=== PATIENT | female | born 1940 | race Two or more races ===

== ENCOUNTER 2021-01-31 11:42 | Emergency (ER) | payer MEDICARE, OTHER ==
[~2021-01-31] VITALS: Ht 160 cm; Wt 79.4 kg
--- NOTE | 2021-01-31 12:01 | NUR ---
CHEST WALL AND R UPPER BACK PAIN X 3 DAYS. THE PATIENT RATES CHEST WALL AND RIGHT UPPER BACK PAIN 5/10. IN ROOM AIR AND DENIES SOB. RESPIRATION REGULAR AND UNLABORED. ATTACHED TO THE MONITOR.
[2021-01-31] MEDS ORDERED: ACETAMINOPHEN ES 500 MG TABLET ONE (12:12)
[2021-01-31] MEDS ORDERED: CYCLOBENZAPRINE 10 MG TABLET ONE (12:12)
--- NOTE | 2021-01-31 12:15 | NUR ---
MEDICATED THE PATIENT PER ORDER. WILL CONTINUE TO MONITOR THE PATIENT.
[2021-01-31 12:26] LABS: BASOPHILS # (AUTO) 0.1 K/uL (0.0-0.2); BASOPHILS % (AUTO) 1.1 % (0.0-2.0); EOSINOPHILS % (AUTO) 0.4 % (0.0-6.0); HEMATOCRIT 37 % (33-45); HEMOGLOBIN 12.3 g/dL (11.5-14.8); LYMPHOCYTES # (AUTO) 0.8 K/uL (0.8-4.8); LYMPHOCYTES % (AUTO) 13.4 % (20.0-44.0); MEAN CORPUSCULAR HGB CONC 33 g/dl (31.0-36.0); MEAN CORPUSCULAR VOLUME 91 fL (82-100); MONOCYTES # (AUTO) 0.5 K/uL (0.1-1.30); NEUTROPHILS # (AUTO) 4.9 K/uL (1.8-8.9); NEUTROPHILS % (AUTO) 77.1 % (43.0-81.0); PLATELET COUNT (AUTO) 260 K/uL (150-450); RED BLOOD CELL COUNT(AUTO) 4.03 MIL/uL (4.0-5.2); WHITE BLOOD COUNT (AUTO) 6.3 K/uL (4.3-11.0)
[2021-01-31] MEDS ORDERED: ACETAMINOPHEN ES 500 MG TABLET PO ONE (12:30)
[2021-01-31] MEDS ORDERED: CYCLOBENZAPRINE 10 MG TABLET PO ONE (12:30)
[2021-01-31 12:35] LABS: CALCIUM, SERUM 9.5 mg/dL (8.5-10.1); CARBON DIOXIDE 23 mmol/L (21-32); CHLORIDE 101 mmol/L (98-107); CREATININE 1.3 mg/dL (0.6-1.3); GLUCOSE 148 mg/dL (74-106); POTASSIUM 4.2 mmol/L (3.5-5.1); SODIUM SERUM 138 mmol/L (136-145); UREA NITROGEN, BLOOD 19 mg/dL (7-18)
[2021-01-31] MEDS ORDERED: CEPH500C2 PO (13:05)
[2021-01-31] MEDS ORDERED: CYCL5TAB PO (13:28)
[2021-01-31] MEDS ORDERED: ACET-2605 PO (13:28)
[2021-01-31 13:44] VITALS: BP 131/85
--- NOTE | 2021-01-31 13:44 | NUR ---
Patient discharged to home in stable condition. Written and verbal after care instructions given. Patient verbalizes understanding of instruction.
== END 2021-01-31 13:45 | disposition home or self-care (01) ==
LOC: ER 11:50
DX: R07.89 Other chest pain (principal); M62.838 Other muscle spasm; I10 Essential (primary) hypertension; Z98.890 Other specified postprocedural states; Z79.899 Other long term (current) drug therapy
CPT/HCPCS: 36415; 71045-TC; 80048-TC; 84484-TC; 85025-TC

== ENCOUNTER 2022-01-17 14:58 | Inpatient (IN) | payer MEDICARE, OTHER ==
[~2022-01-17] VITALS: Ht 160 cm; Wt 85.3 kg
[~2022-01-17 14:58] MED LIST: ACET-2605 PO; CYCL5TAB PO
--- NOTE | 2022-01-17 15:20 | NUR ---
BIBRA 38 FROM HOME W/ C/O PRESSURE-LIKE CHEST PAIN THAT STARTED NOON TIME TODAY. ASPIRIN 324 AND NITRO X1 GIVEN SENIOR COMMUNICATIONS SPECIALIST W/ RELIEF. PT A/O X4, VERBALLY RESPONSIVE. TO ER BED 8. PT ATTACHED TO MONITOR.
--- NOTE | 2022-01-17 15:35 | NUR ---
DR TRAORE AT BEDSIDE FOR EVAL
--- NOTE | 2022-01-17 15:40 | NUR ---
TECH AT BEDSIDE FOR EKG
--- NOTE | 2022-01-17 15:43 | NUR ---
PHLEB TECH AT BEDSIDE FOR BLOOD DRAW.
[2022-01-17 16:01] LABS: BASOPHILS % (AUTO) 0.7 % (0.0-2.0); HEMATOCRIT 33 % (33-45); HEMOGLOBIN 10.9 g/dL (11.5-14.8); LYMPHOCYTES # (AUTO) 0.7 K/uL (0.8-4.8); LYMPHOCYTES % (AUTO) 14.1 % (20.0-44.0); MEAN CORPUSCULAR HGB CONC 34 g/dl (31.0-36.0); MEAN CORPUSCULAR VOLUME 90 fL (82-100); MONOCYTES # (AUTO) 0.4 K/uL (0.1-1.30); MONOCYTES % (AUTO) 7.8 % (2.0-12.0); NEUTROPHILS # (AUTO) 4.1 K/uL (1.8-8.9); NEUTROPHILS % (AUTO) 76.4 % (43.0-81.0); PLATELET COUNT (AUTO) 219 K/uL (150-450); RED BLOOD CELL COUNT(AUTO) 3.61 MIL/uL (4.0-5.2); WHITE BLOOD COUNT (AUTO) 5.3 K/uL (4.3-11.0)
[2022-01-17 16:20] LABS: CALCIUM, SERUM 8.8 mg/dL (8.5-10.1); CARBON DIOXIDE 23 mmol/L (21-32); CHLORIDE 99 mmol/L (98-107); CREATININE 1.4 mg/dL (0.6-1.3); GLUCOSE 120 mg/dL (74-106); POTASSIUM 4.6 mmol/L (3.5-5.1); SODIUM SERUM 132 mmol/L (136-145); UREA NITROGEN, BLOOD 31 mg/dL (7-18)
--- NOTE | 2022-01-17 18:10 | NUR ---
COVID SWAB COLLECTED AND SENT TO LAB
--- NOTE | 2022-01-17 18:27 | NUR ---
[facility] PAGED
[2022-01-17 20:00] VITALS: BP 145/63
[2022-01-17] MEDS ORDERED: NITROGLYCERIN 0.4 MG/TAB BOTTLE SL PRN (20:00)
[2022-01-17] MEDS ORDERED: MAGNESIUM HYDROXIDE 30 ML UDC PO PRN (20:00)
[2022-01-17] MEDS ORDERED: HYDROCODONE/APAP 5/325MG TABLET PO PRN (20:00)
[2022-01-17] MEDS ORDERED: Z GUARD REMEDY 4 OZ OINT TP PRN (20:00)
[2022-01-17] MEDS ORDERED: DEXTROSE 50%-WATER 50 ML DISP.SYRIN IV PRN (20:00)
[2022-01-17] MEDS ORDERED: TEMAZEPAM 15 MG CAPSULE PO PRN (20:00)
[2022-01-17] MEDS ORDERED: MORPHINE SULFATE INJ 2 MG/ML DISP.SYRIN IV PRN (20:00)
[2022-01-17] MEDS ORDERED: MAG HYDROX/AL HYDROX/SIMETH 30 ML UDC PO PRN (20:00)
[2022-01-17] MEDS ORDERED: ONDANSETRON HCL/PF 4 MG/2 ML VIAL IVP PRN (20:00)
[2022-01-17] MEDS ORDERED: ACETAMINOPHEN 325 MG TABLET PO PRN (20:00)
--- NOTE | 2022-01-17 21:44 | NUR ---
report given to eliseo crow for sil
--- NOTE | 2022-01-17 22:07 | NUR ---
pt transported to unit on [facility]
--- NOTE | 2022-01-17 22:10 | NUR ---
RN ADMITTING NOTE PATIENT IN ADMITTED TO TELEMETRY FOR CHEST PAIN. PER PATIENT SHE FELT TIGHTNESS ON HER CHEST TODAY SO SHE CAME TO THE ER. PATIENT IS CURRENTLY ON RA, TOLERATING WELL. NO SOB NOTED AT THIS TIME. PATIENT DOES NOT REPORT ANY CHEST PAIN. TELE MONITOR READS SR 78 BPM. LAC 20 G PATENT AND INTACT, SALINE LOCKED ONLY. BELONGINGS INVENTORIED. ORIENTED PATIENT TO ROOM, RN, AND CRYSTAL CALIBRATOR. PATIENT DOES NOT HAVE ANY COVID VACCINATIONS. SAFETY MEASURES IN PLACE: BED LOCKED AND IN LOWEST POSITION, CALL LIGHT WITHIN REACH, SIDE RAILS UP. WILL MONITOR PATIENT CLOSELY.
[2022-01-17] MEDS: ENOXAPARIN SODIUM 30 MG/0.3 ML DISP.SYRIN SQ SCH (22:29)
[2022-01-17] MEDS: BLOOD SUGAR DIAGNOSTIC 1 EACH STRIP IN SCH (22:30)
--- NOTE | 2022-01-17 22:30 | NUR ---
RN NOTE PATIENT'S BS 109 MG/DL, NO INSULIN COVERAGE GIVEN. PATIENT PROVIDED JELLO AND JUICE. WILL ASSESS FOR HYPO/HYPERGLYCEMIA.
[2022-01-18] VITALS: BP_SYST 126; BP_SYST 145; BP_DIAS 63; BP_DIAS 73
[2022-01-18] MEDS ORDERED: METF-440 PO (01:14)
[2022-01-18] MEDS ORDERED: OMEP20CA15 PO (01:14)
[2022-01-18] MEDS ORDERED: METO-357 PO (01:14)
[2022-01-18] MEDS ORDERED: LOSA1TAB42 PO (01:14)
[2022-01-18] MEDS ORDERED: EXEM25TA5 PO (01:14)
[2022-01-18] MEDS ORDERED: ATOR20TA PO (01:14)
[2022-01-18 04:00] VITALS: BP 156/78
--- NOTE | 2022-01-18 06:31 | NUR ---
RN NOTE PATIENT'S BS 101 MG/DL, NO INSULIN COVERAGE GIVEN. OFFERED SNACKS BUT REFUSED AT THIS TIME. WILL ASSESS FOR HYPO/HYPERGLYCEMIA.
[2022-01-18] MEDS: BLOOD SUGAR DIAGNOSTIC 1 EACH STRIP IN SCH ×4 (06:34→21:23)
[2022-01-18 06:35] LABS: BASOPHILS % (AUTO) 0.8 % (0.0-2.0); HEMATOCRIT 32 % (33-45); HEMOGLOBIN 11.1 g/dL (11.5-14.8); LYMPHOCYTES # (AUTO) 1.1 K/uL (0.8-4.8); LYMPHOCYTES % (AUTO) 20.4 % (20.0-44.0); MEAN CORPUSCULAR HGB CONC 34 g/dl (31.0-36.0); MEAN CORPUSCULAR VOLUME 90 fL (82-100); MONOCYTES # (AUTO) 0.5 K/uL (0.1-1.30); NEUTROPHILS # (AUTO) 3.6 K/uL (1.8-8.9); NEUTROPHILS % (AUTO) 67.8 % (43.0-81.0); PLATELET COUNT (AUTO) 222 K/uL (150-450); WHITE BLOOD COUNT (AUTO) 5.3 K/uL (4.3-11.0)
[2022-01-18 06:58] LABS: CREATININE 1.2 mg/dL (0.6-1.3); MAGNESIUM 1.5 mg/dL (1.8-2.4); PHOSPHORUS 3.6 mg/dL (2.5-4.9); POTASSIUM 4.1 mmol/L (3.5-5.1)
--- NOTE | 2022-01-18 07:15 | NUR ---
RN OPENING NOTE PATIENT IS AWAKE IN BED. A/O X4. NO SOB OF RESPIRATORY DISTRESS NOTED. TELE MONITOR IS READING NORMAL SINUS BETWEEN 65-70. PATIENT DOESN'T REPORT ANY CHEST PAIN AT THIS TIME. ON RA O2 SAT AT 99%. PATIENT HAS A IV IN THE LEFT AC 20G, INTACT, PATENT, AND FLUSHING WELL. RESTING COMFORTABLY IN BED. ALL NEEDS MET AT THIS TIME. SAFETY CHECKS: BED LOCKED, LOWEST POSITION, CALL LIGHT WITHIN REACH. WILL CONTINUE TO MONITOR.
[2022-01-18 07:16] LABS: THYROID STIMULATING HORMONE 2.06 uIU/mL (0.358-3.74)
--- NOTE | 2022-01-18 07:26 | NUR ---
RN CLOSING NOTE PATIENT IN BED, AWAKE. PATIENT IS ABLE TO MAKE NEEDS KNOWN. TELE MONITOR READS SR 60S-70S. PATIENT DOES NOT REPORT ANY CHEST PAIN. PATIENT IS ON RA, TOLERATING WELL, NO SOB NOTED. PATIENT HAS A LFA IV ACCESS PATENT AND INTACT, SALINE LOCKED. PATIENT NOT IN ANY APPARENT DISTRESS. SAFETY MEASURES IMPLEMENTED. ALL NEEDS MET AND ATTENDED. ALL ORDERS CARRIED OUT. WILL ENDORSE TO DAY SHIFT NURSE FOR CLARK.
[2022-01-18] MEDS: PANTOPRAZOLE 40 MG TABLET.DR PO SCH (07:47)
[2022-01-18 08:00] VITALS: BP 144/65
[2022-01-18] MEDS ORDERED: ATORVASTATIN CALCIUM PO SCH (08:00)
[2022-01-18] MEDS ORDERED: OMEPRAZOLE 20 MG CAPSULE.DR PO SCH (08:00)
[2022-01-18 08:07] LABS: IRON, SERUM 70 ug/dl (50-175); TOTAL IRON BINDING CAPACITY 261 ug/dl (250-450)
[2022-01-18] MEDS: IV NS 0.9% 1,000 ML IV PRN (08:28)
[2022-01-18 08:46] LABS: CHOLESTEROL 147 mg/dL (<200); FERRITIN 185 ng/mL (8-388); HDL CHOLESTEROL 50 mg/dL (40-60); LDL 82 mg/dL (0-99); TRIGLYCERIDES 92 mg/dL (30-150)
[2022-01-18] MEDS ORDERED: EXEMESTANE 25 MG PO SCH (09:00)
[2022-01-18] MEDS ORDERED: ASPIRIN 81 MG TAB.CHEW PO SCH (09:00)
[2022-01-18] MEDS ORDERED: NITROGLYCERIN 0.4 MG/TAB BOTTLE ONE (09:20)
[2022-01-18] MEDS ORDERED: IOHEXOL-350 100 ML VIAL IV ONE (09:20)
[2022-01-18] MEDS ORDERED: METOPROLOL TARTRATE INJ 5 MG/5 ML AMPUL ONE ×4 (09:21→10:09)
[2022-01-18] MEDS ORDERED: CT SWABBABLE VALVE TRANS SET 1 EA INFUS.SET MC ONE (09:21)
[2022-01-18] MEDS ORDERED: IV NS 0.9% 250 ML IV ONE (09:21)
--- NOTE | 2022-01-18 09:24 | NUR ---
RN NOTE HOLDING MORNING MEDS DUE TO CT SCAN SCHEDULED. WILL ADMINISTER WHEN PT RETURNS.
[2022-01-18] MEDS: METOPROLOL TARTRATE INJ 5 MG/5 ML AMPUL IVP PRN ×10 (09:30→10:15)
[2022-01-18] MEDS ORDERED: NITROGLYCERIN 0.4 MG/TAB BOTTLE SL PRN (10:00)
[2022-01-18] MEDS ORDERED: MAGNESIUM OXIDE 400 MG TABLET PO ONE (10:00)
--- NOTE | 2022-01-18 10:45 | NUR ---
RN NOTE PT RETURNED FROM CT SCAN. RESTING IN BED COMFORTABLY.
[2022-01-18] MEDS: CYCLOBENZAPRINE 10 MG TABLET PO SCH ×3 (11:17→17:23)
[2022-01-18] MEDS: METOPROLOL SUCCINATE 50 MG TAB.SR.24H PO SCH (11:18)
[2022-01-18] MEDS: LOSARTAN POTASSIUM 50 MG TABLET PO SCH (11:18)
[2022-01-18] MEDS: INSULIN REGULAR, HUMAN 100 UNIT/ML 3 ML VIAL SQ PRN ×2 (12:21→21:23)
[2022-01-18] MEDS: LOSARTAN/HCTZ 50-12.5MG/ 1 EA TABLET PO SCH (15:34)
[2022-01-18 16:00] VITALS: BP 115/57
--- NOTE | 2022-01-18 18:33 | NUR ---
RN CLOSING NOTE, PT IS AWAKE, A/O X 4. NO RESPIRATORY DISTRESS OR SOB NOTED. PT IS STABLE ON RA 98%. TELE UNIT READING NORMAL SINUS RHYTHM AT 71 BPM. NO COMPLAINTS OF CHEST PAIN AT THIS TIME. IV LEFT AC 20 G INFUSING NS 125ML/HR. SAFETY MEASURES IN PLACE: BED LOCKED, BED IN LOWEST POSITION, SIDE RAILS UP X2, CALL LIGHT WITHIN REACH. WILL ENDORSE TO AUTOMOTIVE QUALITY MANAGER NURSE FOR CLARK.
[2022-01-18 20:00] VITALS: BP_SYST 107; BP_DIAS 53; BP_DIAS 59
--- NOTE | 2022-01-18 20:57 | NUR ---
RN OPENING NOTE PATIENT AWAKE IN BED. A/OX4. NO S/S OF DISTRESS, BREATHING WITHOUT DIFFICULTY ON ROOM AIR. LAC #20 INTACT AND PATENT W/ NS 125ML/HR. TELE READS SR 66. SAFETY MEASURES IN PLACE: BED LOCKED AND AT LOWEST POSITION, RAILS UP X2, CALL COURTNEY WITHIN REACH. WILL CONTINUE TO MONITOR PATIENT.
[2022-01-18] MEDS: ENOXAPARIN SODIUM 30 MG/0.3 ML DISP.SYRIN SQ SCH (21:24)
[2022-01-19] VITALS: BP 105/66
[2022-01-19 04:00] VITALS: BP 117/76
[2022-01-19] MEDS: IV NS 0.9% 1,000 ML IV PRN (05:29)
[2022-01-19] MEDS: BLOOD SUGAR DIAGNOSTIC 1 EACH STRIP IN SCH ×2 (06:54→12:35)
[2022-01-19] MEDS: INSULIN REGULAR, HUMAN 100 UNIT/ML 3 ML VIAL SQ PRN (06:54)
--- NOTE | 2022-01-19 07:06 | NUR ---
RN CLOSING NOTE PATIENT AWAKE IN BED. A/OX4. NO S/S OF DISTRESS, BREATHING WITHOUT DIFFICULTY ON ROOM AIR. LAC #20 INTACT AND PATENT W/ NS 125ML/HR. TELE READS SR 76. SAFETY MEASURES STILL IN PLACE: BED LOCKED AND AT LOWEST POSITION, RAILS UP X2, CALL COURTNEY WITHIN REACH. WILL ENDORSE TO NEXT SHIFT FOR CLARK.
--- NOTE | 2022-01-19 07:15 | NUR ---
ms rn received on bed, awake,alert,oriented x4,not in any form of distress, respirations even and unlabored,no sob noted, lungs are clear,abdomen soft, positive bowel sounds, denies pain at this time, call light within reach,all needs attended.
[2022-01-19] MEDS: PANTOPRAZOLE 40 MG TABLET.DR PO SCH (07:53)
[2022-01-19 08:18] VITALS: BP 138/60
[2022-01-19] MEDS: CYCLOBENZAPRINE 10 MG TABLET PO SCH ×2 (08:19→12:36)
[2022-01-19] MEDS: LOSARTAN POTASSIUM 50 MG TABLET PO SCH (08:20)
[2022-01-19] MEDS: METOPROLOL SUCCINATE 50 MG TAB.SR.24H PO SCH (08:20)
[2022-01-19] MEDS: LOSARTAN/HCTZ 50-12.5MG/ 1 EA TABLET PO SCH (08:20)
[2022-01-19] MEDS ORDERED: Hydrocodone/Apap 5/325MG PO (10:42)
[2022-01-19] MEDS ORDERED: EMPA10TA PO (10:42)
[2022-01-19] MEDS ORDERED: LOSA50TA39 PO (10:42)
[2022-01-19 11:51] VITALS: BP 139/63
--- NOTE | 2022-01-19 13:30 | NUR ---
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
== END 2022-01-19 13:40 | disposition home or self-care (01) | DRG 73 ==
LOC: ER 15:00 → TELE 21:22
PROVIDERS: ADMIT Nurse Practitioner Acute Care; ATTEND Nurse Practitioner Acute Care
DX: G62.82 Radiation-induced polyneuropathy (principal); N17.0 Acute kidney failure with tubular necrosis; G89.18 Other acute postprocedural pain; G58.8 Other specified mononeuropathies; E11.9 Type 2 diabetes mellitus without complications; Z85.3 Personal history of malignant neoplasm of breast; E66.9 Obesity, unspecified; Y78.8 Miscellaneous radiological devices associated with adverse incidents, not elsewhere classified; Y84.2 Radiological procedure and radiotherapy as the cause of abnormal reaction of the patient, or of later complication, without mention of misadventure at the time of the procedure; Y92.89 Other specified places as the place of occurrence of the external cause; Z20.822 Contact with and (suspected) exposure to COVID-19; I10 Essential (primary) hypertension; Z90.13 Acquired absence of bilateral breasts and nipples; Z79.899 Other long term (current) drug therapy; Z92.21 Personal history of antineoplastic chemotherapy; Z92.3 Personal history of irradiation; Z68.34 Body mass index [BMI] 34.0-34.9, adult; E78.5 Hyperlipidemia, unspecified; E83.42 Hypomagnesemia; Z79.84 Long term (current) use of oral hypoglycemic drugs
CPT/HCPCS: 36415; 71045-TC; 75574; 80048-TC; 80061-TC; 82728-TC; 82962-TC; 83540-TC; 83735-TC; 84100-TC; 84443-TC; 84484-TC; 85025-TC; 85730-TC; 87081-TC; 93307-TC; C9803; G0378; J1650; J1815; J3490; J7030; J7050; Q9967

== ENCOUNTER 2023-08-11 19:39 | Inpatient (IN) | payer MEDICARE, MEDICAID ==
[~2023-08-11] VITALS: Ht 160 cm; Wt 73.5 kg
[~2023-08-11 19:39] MED LIST changes: +ATOR20TA PO; +EMPA10TA PO; +EXEM25TA5 PO; +Hydrocodone/Apap 5/325MG PO; +LOSA50TA39 PO; +METF-440 PO; +METO-357 PO; +OMEP20CA15 PO
[2023-08-11 22:03] LABS: BASOPHILS # (AUTO) 0.1 K/uL (0.0-0.2); BASOPHILS % (AUTO) 0.7 % (0.0-2.0); EOSINOPHILS # (AUTO) 0.1 K/uL (0.0-0.7); EOSINOPHILS % (AUTO) 1.6 % (0.0-6.0); HEMATOCRIT 35 % (33-45); HEMOGLOBIN 11.7 g/dL (11.5-14.8); LYMPHOCYTES # (AUTO) 1.5 K/uL (0.8-4.8); LYMPHOCYTES % (AUTO) 16.3 % (20.0-44.0); MEAN CORPUSCULAR HEMOGLOBIN 30 PG (26.0-33.0); MEAN CORPUSCULAR HGB CONC 34 g/dl (31.0-36.0); MEAN CORPUSCULAR VOLUME 89 fL (82-100); MONOCYTES # (AUTO) 0.6 K/uL (0.1-1.30); MONOCYTES % (AUTO) 6.9 % (2.0-12.0); NEUTROPHILS # (AUTO) 6.8 K/uL (1.8-8.9); NEUTROPHILS % (AUTO) 74.5 % (43.0-81.0); PLATELET COUNT (AUTO) 259 K/uL (150-450); RED BLOOD CELL COUNT(AUTO) 3.91 MIL/uL (4.0-5.2); RED CELL DISTRIBUTION WIDTH 14.8 % (11.5-15.0); WHITE BLOOD COUNT (AUTO) 9.1 K/uL (4.3-11.0)
[2023-08-11 22:13] LABS: CARBON DIOXIDE 23 mmol/L (21-32); CHLORIDE 98 mmol/L (98-107); CREATININE 1.1 mg/dL (0.6-1.3); GLUCOSE 123 mg/dL (74-106); POTASSIUM 4.6 mmol/L (3.5-5.1); SODIUM SERUM 130 mmol/L (136-145); UREA NITROGEN, BLOOD 15 mg/dL (7-18)
[2023-08-12] MEDS: IV NS 0.9% 250 ML BAG IV ONE (00:08)
[2023-08-12 02:00] VITALS: BP 144/56; TEMP 97.7; O2SAT 100
[2023-08-12 02:46] VITALS: BP 144/56; TEMP 97.7; O2SAT 100
[2023-08-12] MEDS ORDERED: MAG HYDROX/AL HYDROX/SIMETH 30 ML UDC PO PRN (03:00)
[2023-08-12] MEDS ORDERED: Z GUARD REMEDY 4 OZ OINT TP PRN (03:00)
[2023-08-12] MEDS ORDERED: ZOLPIDEM TARTRATE 5 MG TABLET PO PRN (03:00)
[2023-08-12] MEDS ORDERED: ACETAMINOPHEN 325 MG TABLET PO PRN (03:00)
[2023-08-12] MEDS ORDERED: ONDANSETRON HCL/PF 4 MG/2 ML VIAL IVP PRN (03:00)
[2023-08-12] MEDS ORDERED: MAGNESIUM HYDROXIDE 30 ML UDC PO PRN (03:00)
[2023-08-12] MEDS ORDERED: hydrALAZINE HCL IV 20 MG VIAL IV PRN (03:00)
[2023-08-12] MEDS ORDERED: INSULIN REGULAR, HUMAN 100 UNIT/ML 3 ML VIAL SQ PRN (03:30)
[2023-08-12] MEDS ORDERED: DEXTROSE 50%-WATER 50 ML DISP.SYRIN IV PRN (03:30)
[2023-08-12 04:00] VITALS: BP 148/68; TEMP 98.2; O2SAT 100
[2023-08-12 07:30] LABS: BASOPHILS # (AUTO) 0.1 K/uL (0.0-0.2); EOSINOPHILS # (AUTO) 0.2 K/uL (0.0-0.7); HEMATOCRIT 35 % (33-45); HEMOGLOBIN 11.7 g/dL (11.5-14.8); LYMPHOCYTES # (AUTO) 1.4 K/uL (0.8-4.8); LYMPHOCYTES % (AUTO) 18.5 % (20.0-44.0); MEAN CORPUSCULAR HEMOGLOBIN 30 PG (26.0-33.0); MEAN CORPUSCULAR HGB CONC 34 g/dl (31.0-36.0); MEAN CORPUSCULAR VOLUME 88 fL (82-100); MONOCYTES # (AUTO) 0.7 K/uL (0.1-1.30); MONOCYTES % (AUTO) 8.4 % (2.0-12.0); NEUTROPHILS # (AUTO) 5.4 K/uL (1.8-8.9); NEUTROPHILS % (AUTO) 69.1 % (43.0-81.0); PLATELET COUNT (AUTO) 254 K/uL (150-450); RED BLOOD CELL COUNT(AUTO) 3.91 MIL/uL (4.0-5.2); RED CELL DISTRIBUTION WIDTH 14.4 % (11.5-15.0); WHITE BLOOD COUNT (AUTO) 7.8 K/uL (4.3-11.0)
[2023-08-12] MEDS ORDERED: LOPE2TAB25 PO (07:53)
[2023-08-12] MEDS ORDERED: METO-357 PO (07:53)
[2023-08-12] MEDS ORDERED: VALS1TAB4 PO (07:53)
[2023-08-12] MEDS ORDERED: CHOL500062 PO (07:53)
[2023-08-12] MEDS ORDERED: ATOR10TA PO (07:53)
[2023-08-12] MEDS ORDERED: AMLO2.5T2 PO (07:53)
[2023-08-12] MEDS ORDERED: EXEM25TA5 PO (07:53)
[2023-08-12] MEDS ORDERED: LOSA1TAB42 PO (07:53)
[2023-08-12 08:31] LABS: CHOLESTEROL 159 mg/dL (<200); LDL 85 mg/dL (0-99); TRIGLYCERIDES 105 mg/dL (30-150)
[2023-08-12 08:38] LABS: CALCIUM, SERUM 9.4 mg/dL (8.5-10.1); CARBON DIOXIDE 28 mmol/L (21-32); CHLORIDE 102 mmol/L (98-107); GLUCOSE 124 mg/dL (74-106); MAGNESIUM 1.3 mg/dL (1.8-2.4); POTASSIUM 4.1 mmol/L (3.5-5.1); SODIUM SERUM 136 mmol/L (136-145); UREA NITROGEN, BLOOD 16 mg/dL (7-18)
[2023-08-12 08:38] LABS: APPEARANCE,URINE SLIGHTLY CLOUDY (CLEAR); BILIRUBIN,URINE NEGATIVE (NEGATIVE); BLOOD, URINE TRACE-INTA Ery/uL (NEGATIVE); COLOR,URINE YELLOW (YELLOW); KETONES,URINE NEGATIVE (NEGATIVE); LEUKOCYTE ESTERASE ,URINE 3+ (NEGATIVE); NITRITE, URINE NEGATIVE (NEGATIVE); PROTEIN,URINE NEGATIVE (NEGATIVE); UGLUCOSE NEGATIVE (NEGATIVE); UROBILINOGEN,URINE 0.2 EU/dL (0.2)
[2023-08-12] MEDS: BLOOD SUGAR DIAGNOSTIC 1 EACH STRIP IN SCH (08:42)
[2023-08-12 08:45] LABS: ADD URINE CULTURE YES; BACTERIA,URINE Moderate /HPF (None Seen); SQUAMOUS EPITHELIAL CELL,UR Rare /HPF (None Seen); WBC,URINE 21-50 /HPF (0-3)
[2023-08-12 08:53] LABS: HDL CHOLESTEROL 49 mg/dL (40-60); THYROID STIMULATING HORMONE 3.885 uIU/mL (0.358-3.74)
[2023-08-12] MEDS ORDERED: LOSARTAN POTASSIUM 50 MG TABLET PO SCH (09:00)
[2023-08-12] MEDS: PANTOPRAZOLE 40 MG VIAL IV SCH (09:24)
[2023-08-12] MEDS: ASPIRIN 81 MG TAB.CHEW PO SCH (09:28)
[2023-08-12] MEDS: ATORVASTATIN 10 MG TABLET PO SCH (09:29)
[2023-08-12] MEDS: EXEMESTANE 25 MG PO SCH (09:29)
[2023-08-12] MEDS: METOPROLOL SUCCINATE 50 MG TAB.SR.24H PO SCH (09:32)
[2023-08-12 09:33] VITALS: BP 144/63
[2023-08-12] MEDS: VALSARTAN 80 MG TABLET PO SCH (09:33)
[2023-08-12] MEDS: ENOXAPARIN SODIUM 40 MG/0.4 ML DISP.SYRIN SQ SCH (09:42)
[2023-08-12] MEDS ORDERED: MAGNESIUM OXIDE 400 MG TABLET PO ONE (10:30)
[2023-08-12] MEDS ORDERED: CLONIDINE HCL 0.1 MG TABLET PO PRN (10:30)
[2023-08-12] MEDS ORDERED: LOPERAMIDE HCL (2 MG CAP) 2 MG CAPSULE PO PRN (11:30)
[2023-08-12] MEDS ORDERED: METOPROLOL SUCCINATE 50 MG TAB.SR.24H PO SCH (17:00)
[2023-08-12] MEDS ORDERED: ATORVASTATIN 10 MG TABLET PO SCH (22:00)
[2023-08-13] MEDS ORDERED: CHOLECALCIFEROL 1,000 UNIT TABLET (VIT D3) PO SCH (09:00)
[2023-08-13] MEDS ORDERED: AMLODIPINE BESYLATE 2.5 MG TABLET PO SCH (09:00)
[2023-08-13] MEDS ORDERED: HYDROCHLOROTHIAZIDE 25 MG TABLET PO SCH (09:00)
== END 2023-08-12 11:51 | disposition left against medical advice (07) | DRG 305 ==
LOC: ER 19:41 → TELE1 08-12 01:02
PROVIDERS: ADMIT Internal Medicine; ATTEND Internal Medicine
DX: I16.0 Hypertensive urgency (principal); E87.1 Hypo-osmolality and hyponatremia; E78.5 Hyperlipidemia, unspecified; E11.9 Type 2 diabetes mellitus without complications; E83.42 Hypomagnesemia; K21.9 Gastro-esophageal reflux disease without esophagitis; Z79.84 Long term (current) use of oral hypoglycemic drugs; Z85.3 Personal history of malignant neoplasm of breast; Z90.13 Acquired absence of bilateral breasts and nipples
CPT/HCPCS: 36415; 71045-TC; 80048-TC; 80061-TC; 81001; 82962-TC; 83735-TC; 84100-TC; 84443-TC; 84484-TC; 85025-TC; 87086-TC; 97110-TC; 97116-TC; 97530-TC; C9113; G0378; J1650; J1815

== ENCOUNTER 2023-11-30 23:07 | Emergency (ER) | payer MEDICARE, MEDICAID ==
[~2023-11-30] VITALS: Ht 154.9 cm; Wt 75.3 kg
[~2023-11-30 23:07] MED LIST changes: -ACET-2605 PO; +AMLO2.5T2 PO; +ATOR10TA PO; -ATOR20TA PO; +CHOL500062 PO; -CYCL5TAB PO; -Hydrocodone/Apap 5/325MG PO; +LOPE2TAB25 PO; +LOSA1TAB42 PO; +VALS1TAB4 PO
[2023-11-30] MEDS: MORPHINE SULFATE INJ 2 MG/ML DISP.SYRIN IV ONE (23:30)
[2023-11-30] MEDS: ONDANSETRON HCL/PF 4 MG/2 ML VIAL IVP ONE (23:30)
[2023-11-30] MEDS ORDERED: ONDANSETRON HCL/PF 4 MG/2 ML VIAL ONE (23:30)
[2023-11-30] MEDS ORDERED: MORPHINE SULFATE INJ 2 MG/ML DISP.SYRIN ONE (23:30)
[2023-11-30] MEDS: IV NS 0.9% 1,000 ML BAG IV ONE (23:30)
[2023-12-01 00:14] LABS: BASOPHILS % (AUTO) 0.4 % (0.0-2.0); EOSINOPHILS % (AUTO) 0.4 % (0.0-6.0); HEMATOCRIT 35 % (33-45); HEMOGLOBIN 11.9 g/dL (11.5-14.8); LYMPHOCYTES # (AUTO) 0.7 K/uL (0.8-4.8); LYMPHOCYTES % (AUTO) 6.5 % (20.0-44.0); MEAN CORPUSCULAR HEMOGLOBIN 30 PG (26.0-33.0); MEAN CORPUSCULAR HGB CONC 34 g/dl (31.0-36.0); MEAN CORPUSCULAR VOLUME 88 fL (82-100); MONOCYTES # (AUTO) 0.9 K/uL (0.1-1.30); MONOCYTES % (AUTO) 7.8 % (2.0-12.0); NEUTROPHILS # (AUTO) 9.4 K/uL (1.8-8.9); NEUTROPHILS % (AUTO) 84.9 % (43.0-81.0); PLATELET COUNT (AUTO) 237 K/uL (150-450); RED BLOOD CELL COUNT(AUTO) 3.99 MIL/uL (4.0-5.2); RED CELL DISTRIBUTION WIDTH 13.8 % (11.5-15.0); WHITE BLOOD COUNT (AUTO) 11.1 K/uL (4.3-11.0)
[2023-12-01 00:28] LABS: CALCIUM, SERUM 9.7 mg/dL (8.5-10.1); CARBON DIOXIDE 23 mmol/L (21-32); CHLORIDE 97 mmol/L (98-107); GLUCOSE 175 mg/dL (74-106); POTASSIUM 4.5 mmol/L (3.5-5.1); SODIUM SERUM 132 mmol/L (136-145); UREA NITROGEN, BLOOD 20 mg/dL (7-18)
[2023-12-01 00:35] LABS: INR 1.12 (0.91-1.10); PARTIAL THROMBOPLASTIN TIME 29.9 SEC (24.3-34.3); PROTHROMBIN TIME 11.8 SECS (9.2-11.1)
[2023-12-01 00:39] LABS: ALANINE AMINOTRANSFERASE 15 U/L (12-78); ALBUMIN 3.5 g/dL (3.4-5.0); ALKALINE PHOSPHATASE 103 U/L (46-116); ASPARTATE AMINOTRANSFERASE 16 U/L (15-37); BILIRUBIN,DIRECT 0.2 mg/dL (0.0-0.2); BILIRUBIN,TOTAL 0.6 mg/dL (0.2-1.0); LIPASE 55 U/L (16-77); TOTAL PROTEIN, SERUM 7.9 g/dL (6.4-8.2)
[2023-12-01 00:40] LABS: APPEARANCE,URINE SLIGHTLY CLOUDY (CLEAR); BILIRUBIN,URINE NEGATIVE (NEGATIVE); BLOOD, URINE 1+ Ery/uL (NEGATIVE); COLOR,URINE YELLOW (YELLOW); KETONES,URINE TRACE mg/dL (NEGATIVE); LEUKOCYTE ESTERASE ,URINE 1+ (NEGATIVE); NITRITE, URINE POSITIVE (NEGATIVE); PROTEIN,URINE 1+ mg/dl (NEGATIVE); UGLUCOSE NEGATIVE (NEGATIVE)
[2023-12-01 01:06] LABS: ADD URINE CULTURE YES; BACTERIA,URINE Many /HPF (None Seen); SQUAMOUS EPITHELIAL CELL,UR Few /HPF (None Seen)
[2023-12-01] MEDS ORDERED: NITR100C6 PO (01:24)
[2023-12-01] MEDS ORDERED: NITROFURANTOIN/MONOHYDRATE MACROCRYSTALS 100 MG CAPSULE ONE (01:30)
[2023-12-01] MEDS: NITROFURANTOIN/MONOHYDRATE MACROCRYSTALS 100 MG CAPSULE PO ONE (01:33)
[2023-12-01 03:18] VITALS: BP 135/87; TEMP 98.6; O2SAT 98
== END 2023-12-01 03:20 | disposition home or self-care (01) ==
LOC: ER 23:15
DX: N39.0 Urinary tract infection, site not specified (principal); I10 Essential (primary) hypertension; E11.9 Type 2 diabetes mellitus without complications; E78.5 Hyperlipidemia, unspecified; Z98.890 Other specified postprocedural states; Z79.899 Other long term (current) drug therapy; Z79.84 Long term (current) use of oral hypoglycemic drugs
CPT/HCPCS: 99285; 74176; 96374; 71045; 96361; 96375; 93005; 85025; 80048; 83690; 80076; 36415; 84484; 85730; 81001; J2405; J7030; J2270; L0172